=== PATIENT | female | born 1975 | race Caucasian/White ===

== ENCOUNTER 2016-12-27 15:05 | Emergency (ER) | payer OTHER ==
[~2016-12-27] VITALS: Wt 91.9 kg
[~2016-12-27 15:05] MED LIST: ATEN50TA PO; BENA40TA54 PO
[2016-12-27 18:10] VITALS: BP 184/113; PULSE 69; RESP 17; TEMP 98.6
--- NOTE | 2016-12-27 18:22 | RADRPT ---
PROCEDURE: XR Chest. CLINICAL INDICATION: Chest Pain. TECHNIQUE: PA and Lateral views of the chest were obtained. COMPARISON: Chest radiograph dated October 24, 2012. FINDINGS: The cardiomediastinal silhouette is within normal limits. The lungs are clear. No signs of pleural f luid or pneumothorax are seen. The osseous structures and soft tissues are unremarkable. IMPRESSION: 1. No evidence for active cardiopulmonary disease. RPTAT:AAJJ Physician Jamilah Date Time Electronically viewed and signed by Thelma Mancia Physician on 12/27/2016 18:21 QL/
--- NOTE | 2016-12-27 19:13 | ERD ---
ER Documentation Chief Complaint Chief Complaint l. sided cp rad up l. neck and down l. arm since Sun. progr in severity HPI 41-year-old female with a history of diabetes and high cholesterol presenting to the ER complaining of left-sided chest pain. The pain started about 4 days ago. Initially it was intermittent, but it has been constant since 12 PM today. The pain is a 10 out of 10, sharp pain that radiates to her left arm and the back of her left neck. She also complains of left arm tingling sensation. She denies any associated diaphoresis, nausea, vomiting, or shortness of breath. No recent surgeries, immobilizations, or history of blood clotting disorders. No family history of coronary artery disease. She denies any focal weakness or any headache. ROS All systems reviewed and are negative except as per history of present illness. Medications Home Meds Reported Medications Atenolol* (Atenolol*) 50 Mg Tablet, 50 MG PO DAILY 10/23/12 Benazepril Hcl* (Lotensin*) 40 Mg Tablet, 40 MG PO DAILY 10/23/12 Allergies Allergies: Coded Allergies: No Known Allergy (Unverified , 10/23/12) PMhx/Soc History of Surgery: Yes () Anesthesia Reaction: No Hx Neurological Disorder: No Hx Respiratory Disorders: No Hx Cardiac Disorders: Yes (HTN) Hx Psychiatric Problems: No Hx Miscellaneous Medical Probl: Yes (DM) Hx Alcohol Use: No Hx Substance Use: No Hx Tobacco Use: No Smoking Status: Never smoker FmHx Family History: No coronary disease, No diabetes Physical Exam Vitals Vital Signs Date Time Temp Pulse Resp B/P Pulse Ox O2 Delivery O2 Flow Rate FiO2 12/27/16 18:10 98.6 69 17 184/113 Room Air 12/27/16 15:09 97.9 87 20 195/114 98 Physical Exam Const: Nontoxic, obese, appears to be in distress secondary to pain. No diaphoresis Head: Atraumatic Eyes: Normal Conjunctiva, PERRLA, EOMI ENT: Normal External Ears, Nose and Mouth. Neck: Full range of motion..~ No meningismus. No JVD Resp: Clear to auscultation bilaterally Cardio: Regular rate and rhythm, no murmurs. 2+ distal pulses in all 4 extremities Abd: Soft, non tender, non distended. Normal bowel sounds Skin: No petechiae or rashes Back: No midline or flank tenderness Ext: No cyanosis, or edema. No calf tenderness. Neur: Awake and alert, oriented 3, cranial nerves intact, strength and sensations intact in all 4 extremities, normal gait Psych: Normal Mood and Affect Result Diagram: 12/27/16181912/27/161819 Results 24 hrs Laboratory Tests Test 12/27/16 18:20 White Blood Count 7.610^3/ul Red Blood Count 4.8410^6/ul Hemoglobin 14.2g/dl Hematocrit 42.9% Mean Corpuscular Volume 88.6fl Mean Corpuscular Hemoglobin 29.3pg Mean Corpuscular Hemoglobin Concent 33.1g/dl Red Cell Distribution Width 13.1% Platelet Count 84944^3/UL Mean Platelet Volume 11.9fl Neutrophils % 55.0% Lymphocytes % 34.8% Monocytes % 7.5% Eosinophils % 1.6% Basophils % 0.8% Nucleated Red Blood Cells % 0.0/100WBC Neutrophils # 4.210^3/ul Lymphocytes # 2.610^3/ul Monocytes # 0.610^3/ul Eosinophils # 0.110^3/ul Basophils # 0.110^3/ul Nucleated Red Blood Cells # 0.010^3/ul Sodium Level 143mmol/L Potassium Level 3.7mmol/L Chloride Level 103mmol/L Carbon Dioxide Level 28mmol/L Anion Gap 16 Blood Urea Nitrogen 13mg/dl Creatinine 0.68mg/dl Glucose Level 99mg/dl Calcium Level 9.1mg/dl Troponin I < 0.012ng/ml Serum HCG, Qualitative NEGATIVE Current Medications Medications (Trade) Dose Ordered Sig/Gopal Route PRN Reason Start Time Stop Time Status Last Admin Dose Admin Morphine Sulfate (morphine) 6 mg ONCE ONCE IV 12/27/16 20:30 12/27/16 20:31 Procedures/MDM [facility] EMERGENT LABS AND DIAGNOSTIC STUDIES: Lab Results above were reviewed and interpreted by me. CBC: no anemia or evidence of infection BMP: Normal Troponin within normal limits 12-lead EKG was interpreted by Gloria Lange MD: Normal Sinus Rhythm Normal axis Normal intervals Nonspecific T-wave abnormality No acute ST or T wave changes suggestive of acute ischemia or STEMI. Radiology Results as interpreted by Radiology below were reviewed by Davon Lange MD: Chest x-ray showed no acute abnormalities CT angio chest pending Initial Nursing notes reviewed. Previous Medical Records requested via the Electronic Health Record. EMERGENCY DEPARTMENT COURSE / MEDICAL DECISION MAKING: Patient is presenting with a few days of left-sided chest pain, now severe. Her vitals were notable for uncontrolled hypertension. She has no evidence of stroke on my exam. She has normal pulses on my suspicion for aortic dissection is lower, however I cannot explain her severe pain at this time. Pulmonary embolism and acute coronary syndrome remain on the differential. Heart score is 2 and she is PERC negative. Her chest x-ray did not show any acute abnormalities. Her initial labs were all normal, including the troponin. There is no evidence of STEMI on EKG. Morphine was given for pain. At this time I cannot rule out hypertensive emergency. Patient still awaiting CT angiogram of the chest at the end of my shift. I will sign the patient out to the oncoming ED physician who will follow up on the imaging. If the patient's symptoms and blood pressure are improved and her CT is normal, I believe she may be discharged home. Departure Diagnosis: Primary Impression: Chest pain Chest pain type: unspecified Qualified Code: R07.9 - Chest pain, unspecified type Condition: SALVADOR Boyle MD Dec 27, 2016 19:13
[2016-12-27] MEDS ORDERED: LOSA50TA6 PO (20:28)
[2016-12-27] MEDS ORDERED: METF1000 PO (20:29)
[2016-12-27] MEDS ORDERED: HYDR25TA6 PO (20:29)
[2016-12-27] MEDS ORDERED: ENALAPRILAT 1.25 MG INJ IV ONE (20:30)
[2016-12-27] MEDS ORDERED: IBUP-1542 PO (20:30)
[2016-12-27] MEDS ORDERED: morphine 10 MG INJ IV ONE (20:30)
[2016-12-27] MEDS ORDERED: SS SC (20:31)
[2016-12-27] MEDS ORDERED: NPH SQ (20:31)
[2016-12-27] MEDS ORDERED: IODIXANOL LOCM 50 ML BTL ONE (20:46)
[2016-12-27] MEDS ORDERED: IODIXANOL LOCM 100 ML BTL ONE (20:46)
[2016-12-27] MEDS ORDERED: SOD CHLORIDE 0.9% 100 ML ONE (20:46)
--- NOTE | 2016-12-27 21:48 | RADRPT ---
PROCEDURE: CT ANGIOGRAM CHEST CLINICAL INDICATION: 41 years of age female. Chest pain . Evaluate for aortic dissection. TECHNIQUE: CT angiogram of the chest was obtained. Coronal and sagittal reformatted images were obtained from t he axial source images. Images were reviewed on a high-resolution PACS workstation. 3-D post process ing was performed. Maximum intensity projection images were reconstructed on PACS. Intravenous Contrast Medium Administered: 125 mL of Visipaque 320 Image acquisition by series (and radiation doses in CTDIvol): 28 and 19 mGy Estimated cumulative dose or total kdmw-pcxmen-zrhirup (DLP) is: 649 mGy-cm. Estimated radiation dos es are based on a 32 cm body phantom reference. Cardiac Gating: None. One or more of the following dose reduction techniques were used: - Automated exposure control. - Adjustment of the mA and/or kV according to patient size. - Use of iterative reconstruction technique. COMPARISON: None available. FINDINGS: CARDIOVASCULAR: Heart: Normal in size. No significant coronary artery calcification. No significant valvular calcifi cation. Pericardium: No pericardial effusion. Pulmonary arteries: Not enlarged. No obvious central filling defects on this non-dedicated study to suggest pulmonary embolism. Thoracic aorta: No significant abnormality. Normal cervical branching. Negative for significant athe rosclerosis. Negative for evidence of aortic dissection. Upper abdominal aorta: There is an accessory left hepatic artery arising from the left gastric perla ry. REMAINING CHEST: Medical devices: None. Thyroid: Normal. Lymph nodes: No supraclavicular, axillary, mediastinal, or hilar lymphadenopathy. Other mediastinal structures: No significant abnormality. Lung parenchyma: No significant abnormality. Airways: No significant abnormality. Pleura: No significant abnormality. Chest wall: No significant abnormality. Upper abdomen: No significant abnormality. Musculoskeletal: No suspicious bone lesions. IMPRESSION: Negative for evidence of thoracic aortic dissection or acute aortic syndrome. Cause for chest pain i s not evident. RPTAT: HCTS Physician Jermaine Date Time Electronically viewed and signed by Physician Jermaine on 12/27/2016 21:47 CS/
--- NOTE | 2016-12-27 21:57 | QN ---
Documentation Comment I was asked by Dr. Harrison to follow-up on the CT angiogram of the chest. According to her if a CT angiogram of the chest is negative, the patient could be discharged as written by her. CT angiogram of the chest is negative for any acute abnormality MARI LEE MD Dec 27, 2016 21:57
== END 2016-12-27 23:09 | disposition home or self-care (01) ==
LOC: E/R 15:05
DX: R07.9 Chest pain, unspecified (principal); E11.9 Type 2 diabetes mellitus without complications; I10 Essential (primary) hypertension
CPT/HCPCS: 36415; 71010; 71275; 80048; 84484; 84703; 85025; 93005; Q9967; Z7502; Z7610

== ENCOUNTER 2018-09-30 10:59 | Emergency (ER) | payer OTHER ==
[~2018-09-30] VITALS: Ht 160 cm; Wt 93.4 kg
[~2018-09-30 10:59] MED LIST changes: -ATEN50TA PO; -BENA40TA54 PO; +BUSP15TA3 PO; +FLUO20CA22 PO; +HYDR12.58 PO; +HYDR25TA6 PO; +IBUP-1542 PO; +INSU100C SQ; +INSU100I33 SC; +LORA10TA3 PO; +LOSA100T15 PO; +LOSA50TA14 PO; +METF100010 PO; +NPH SQ; +PANT40TA4 PO; +SS SC
[2018-09-30 11:04] VITALS: Ht 160 cm; Wt 93.4 kg
--- NOTE | 2018-09-30 13:21 | ERD ---
ER Documentation Chief Complaint Chief Complaint ABDOMINAL PAIN/ CHEST PAIN HPI The patient is a 43-year-old female, presenting to the ER because diffuse abdominal pain, left-sided chest pain that began 2 days ago, had similar sympto ms previously. She seems to be more concerned about the abdominal pain. The abdominal pain is diffuse, vague, no aggravating/relieving factor. She denies fever, chills, vomiting, dysuria, diarrhea. The chest pain is vague intermittent, she had similar symptoms previously, denies any chest pain. She does not smoke nor drink Medical history: Diabetes mellitus, hypertension Past surgical history: , cholecystectomy ROS All systems reviewed and are negative except as per history of present illness. Medications Home Meds Active Scripts Ibuprofen* (Motrin*) 600 Mg Tab, 600 MG PO Q6H PRN for PAIN AND OR ELEVATED TEMP, #20 TAB Prov:MARI LEE MD 09/30/18 Pantoprazole (Protonix) 40 Mg Tabec, 40 MG PO DAILY, #10 TAB Prov:MARI LEE MD 09/30/18 Reported Medications Loratadine* (Loratadine*) 10 Mg Tablet, 10 MG PO DAILY, #30 TAB 09/30/18 Fluoxetine Hcl* (Fluoxetine Hcl*) 20 Mg Capsule, 40 MG PO DAILY, CAP 09/30/18 Losartan Potassium* (Losartan Potassium*) 100 Mg Tablet, 100 MG PO DAILY, TAB 09/30/18 Insulin Glargine,Hum.rec.anlog (Basaglar Kwikpen U-100) 100 Unit/1 Ml Insuln.pen, 40 UNIT SC QHS, EA 09/30/18 Hydrochlorothiazide* (Hydrochlorothiazide*) 12.5 Mg Tablet, 12.5 MG PO DAILY, #30 TAB 09/30/18 Insulin Lispro (Humalog) 100 Unit/1 Ml Cartridge, 15 UNIT SQ WITH MEALS, EA 09/30/18 Buspirone Hcl* (Buspirone Hcl*) 15 Mg Tablet, 30 MG PO BID, TAB 09/30/18 Discontinued Reported Medications Insulin Human Regular (Novolin-R U-100) 100 Unit/Ml Soln, 10 UNITS SC AC MEALS, EA 12/27/16 Insulin Human Nph (Novolin-N) 100 Units/Ml Susp, 24 UNIT SQ QHS 12/27/16 Ibuprofen* (Ibuprofen*) 600 Mg Tablet, 600 MG PO NEEDED, TAB 12/27/16 Metformin Hcl* (Metformin Hcl*) 1,000 Mg Tablet, 1000 MG PO WITH BREAKFAST DINNE, #60 TAB 12/27/16 Hydrochlorothiazide* (Hydrochlorothiazide*) 25 Mg Tab, 25 MG PO DAILY, #30 TAB 12/27/16 Losartan Potassium* (Losartan Potassium*) 50 Mg Tablet, 50 MG PO DAILY, TAB 12/27/16 Allergies Allergies: Coded Allergies: No Known Allergy (Unverified , 09/30/18) PMhx/Soc History of Surgery: Yes () Anesthesia Reaction: No Hx Neurological Disorder: No Hx Respiratory Disorders: No Hx Cardiac Disorders: Yes (HTN) Hx Psychiatric Problems: No Hx Miscellaneous Medical Probl: Yes (DM) Hx Alcohol Use: No Hx Substance Use: No Hx Tobacco Use: No Physical Exam Vitals Vital Signs Date Temp Pulse Resp B/P (MAP) Pulse Ox O2 O2 Flow FiO2 Time Delivery Rate 09/30/18 98.0 100 24 158/96 98 11:04 (116) Physical Exam Const: No acute distress. Head: Atraumatic. Eyes: Normal Conjunctiva. ENT: Normal External Ears, Nose and Mouth. Neck: Full range of motion. No meningismus. Resp: Clear to auscultation bilaterally. Cardio: Regular rate and rhythm. Abd: Soft, non distended, normal bowel sounds, vague and diffuse abdominal discomfort, no rigidity/rebound/CVA tenderness Skin: No petechiae or rashes. Back: No midline or flank tenderness. Ext: No cyanosis, or edema. Neur: Awake and alert. No focal deficit Psych: Normal Mood and Affect. Result Diagram: 09/30/18 1334 09/30/18 1334 Results 24 hrs Laboratory Tests Test 09/30/18 13:34 09/30/18 13:39 09/30/18 13:48 09/30/18 13:52 White Blood Count 6.0 10^3/ul Red Blood Count 5.29 10^6/ul Hemoglobin 15.6 g/dl Hematocrit 45.8 % Mean Corpuscular 86.6 fl Volume Mean Corpuscular 29.5 pg Hemoglobin Mean Corpuscular 34.1 g/dl Hemoglobin Concent Red Cell Distribution 12.7 % Width Platelet Count 226 10^3/UL Mean Platelet Volume 11.3 fl Immature Granulocytes 0.300 % % Neutrophils % 79.2 % Lymphocytes % 13.4 % Monocytes % 5.6 % Eosinophils % 1.2 % Basophils % 0.3 % Nucleated Red Blood 0.0 /100WBC Cells % Immature Granulocytes 0.020 10^3/ul # Neutrophils # 4.8 10^3/ul Lymphocytes # 0.8 10^3/ul Monocytes # 0.3 10^3/ul Eosinophils # 0.1 10^3/ul Basophils # 0.0 10^3/ul Nucleated Red Blood 0.0 10^3/ul Cells # Sodium Level 136 mmol/L Potassium Level 4.0 mmol/L Chloride Level 97 mmol/L Carbon Dioxide Level 26 mmol/L Anion Gap 13 Blood Urea Nitrogen 13 mg/dl Creatinine 0.61 mg/dl Est Glomerular > 60 mL/min Filtrat Rate mL/min Glucose Level 306 mg/dl Calcium Level 8.9 mg/dl Total Bilirubin 0.7 mg/dl Direct Bilirubin 0.00 mg/dl Indirect Bilirubin 0.7 mg/dl Aspartate Amino 33 IU/L Transf (AST/SGOT) Alanine 45 IU/L Aminotransferase (ALT /SGPT) Alkaline Phosphatase 228 IU/L Troponin I < 0.012 ng/ml Total Protein 8.0 g/dl Albumin 4.4 g/dl Globulin 3.60 g/dl Albumin/Globulin 1.22 Ratio Lipase 80 U/L Bedside Glucose 296 mg/dL Bedside Urine pH 6.0 (LAB) Bedside Urine Protein Negative (LAB) Bedside Urine Glucose 0.50% (UA) Bedside Urine Ketones Negative (LAB) Bedside Urine Blood Trace-intact Bedside Urine Nitrite Negative (LAB) Bedside Urine Negative Leukocyte Esterase (L POC Beta HCG, NEGATIVE Qualitative Current Medications Medications Dose Sig/Gopal Start Time Status Last (Trade) Ordered Route PRN Stop Time Admin Dose Reason Admin Ketorolac 30 mg ONCE STAT 09/30/18 DC 09/30/18 Tromethamine IV 14:12 09/30/18 14:19 (Toradol) 14:14 Procedures/MDM [place] [id number] Radiology Main Line: [phone] DIAGNOSTIC IMAGING REPORT Patient: LILY GARRISON : 1975 Age: 43 Sex: F MR #: [id number] DOS: 09/30/18 1330 Ordering MD: MARI LEE MD Location: E/R Room/Bed: PROCEDURE: XR Chest 1 View CLINICAL INDICATION: Chest pain TECHNIQUE: Single frontal view of the chest COMPARISON: CR CHEST 10/24/2012 FINDINGS: Heart size is normal. Mediastinum is unremarkable. Lungs are clear. No pleural effusion or pneumothorax. No acute osseous abnormality. Elevated right hemidiaphragm. IMPRESSION: No acute pulmonary disease. RPTAT: PP Physician Vickey Date Time Electronically viewed and signed by Laurence Wang Physician on 09/30/2018 13:57 ME/ CC: MARI LEE MD [phone] EKG: Read by emergency physician Rate/Rhythm: Normal Sinus Rhythm 95 beats/min QRS, ST, T-waves: No ST elevation, no T inversion Impression: Normal EKG MEDICAL MAKING DECISION: The patient is a 43-year-old female, presenting with abdominal pain of unclear etiology, treated with Toradol 30 mg IV for pain with good response, is stable for outpatient follow-up The differential diagnoses considered include but are not limited to cho lelithiasis, cholecystitis, choledocholithiasis, cholangitis, pancreatitis, hepatitis, gastritis, peptic ulcer disease, gastric ulcer, appendicitis, cystitis, diverticulitis, partial small bowel obstruction. Departure Diagnosis: Primary Impression: Abdominal pain Condition: Good Comments She was discharged with Motrin and Protonix The patient's blood pressure was elevated (>120/80) but appears stable without evidence of hypertension emergency or urgency. The patient was counseled about the risks of hypertension and urged to pursue outpatient monitoring and therapy within a week with their primary care physician. I discussed the findings with the patient. I advised the patient to follow-up with the primary physician in the morning or return to the ER for reevaluation, sooner if any concern Disclaimer: Inadvertent spelling and grammatical errors are likely due to EHR/dictation software use and do not reflect on the overall quality of patient care. Also, please note that the electronic time recorded on this note does not necessarily reflect the actual time of the patient encounter. MARI LEE MD Sep 30, 2018 13:20
[2018-09-30] MEDS ORDERED: KETOROLAC 30 MG INJ IV STA (14:12)
[2018-09-30 15:23] VITALS: BP 139/91; PULSE 87; RESP 18
== END 2018-09-30 15:27 | disposition home or self-care (01) ==
LOC: E/R 10:59
DX: R10.84 Generalized abdominal pain (principal); E11.9 Type 2 diabetes mellitus without complications; I10 Essential (primary) hypertension; Z79.4 Long term (current) use of insulin
CPT/HCPCS: 36415; 71045; 80053; 81003; 81025; 82962; 83690; 84484; 85025; 93005; 96374; J1885; Z7502